=== PATIENT | female | born 1985 | race Caucasian/White ===

== ENCOUNTER 2021-06-21 19:27 | Emergency (ER) | payer SELFPAY ==
[~2021-06-21] VITALS: Ht 165.1 cm; Wt 67.1 kg
[2021-06-21 19:38] VITALS: BP 127/74
--- NOTE | 2021-06-21 19:50 | NUR ---
Patient BIB by family from home. C/O RLQ abdominal pain x 1 day. Patient reported , had RLQ abdominal pain with nausea, vomiting, no diarrhea since 1640 PM yesterday, no fever.
[2021-06-21] MEDS ORDERED: KETOROLAC 30 MG/ML VIAL IVP ONE (20:05)
--- NOTE | 2021-06-21 20:17 | NUR ---
Dr. Saarvia at bedside to exam patient.
[2021-06-21] MEDS ORDERED: ONDANSETRON 4 MG/2 ML VIAL IVP ONE (20:20)
[2021-06-21] MEDS ORDERED: NACL 0.9% 1,000 ML IV SCH (20:20)
[2021-06-21 20:44] LABS: BASOPHILS # (AUTO) 0.1 K/uL (0.00-0.22); BASOPHILS % (AUTO) 0.7 % (0.0-2.0); EOSINOPHILS # (AUTO) 0.1 K/uL (0-0.4); EOSINOPHILS % (AUTO) 0.7 % (0.0-4.0); HEMATOCRIT 38.8 % (36-48); HEMOGLOBIN 13.2 g/dL (12.0-16.0); LYMPHOCYTES # (AUTO) 2.4 K/uL (2.5-16.5); LYMPHOCYTES % (AUTO) 25.9 % (20.5-51.1); MEAN CORPUSCULAR HEMOGLOBIN 28 pg (27-31); MEAN CORPUSCULAR HGB CONC 34 g/dL (33-37); MONOCYTES # (AUTO) 0.6 K/uL (0.8-1.0); MONOCYTES % (AUTO) 5.9 % (1.7-9.3); NEUTROPHILS # (AUTO) 6.2 K/uL (1.8-7.7); NEUTROPHILS % (AUTO) 66.8 % (42.2-75.2); PLATELET COUNT (AUTO) 326 K/uL (140-450); RED BLOOD CELL COUNT(AUTO) 4.67 MIL/uL (4.20-5.40); RED CELL DISTRIBUTION WIDTH 14.7 % (11.6-13.7); WHITE BLOOD COUNT (AUTO) 9.3 K/uL (4.8-10.8)
--- NOTE | 2021-06-21 20:50 | NUR ---
Patient transfer to radiology dept via wheelchair with interventional radiology technologist.
[2021-06-21 20:53] LABS: ALBUMIN 3.9 g/dL (3.4-5.0); ANION GAP 13.1 (8-16); CARBON DIOXIDE 28.3 mmol/L (21-32); CREATININE 0.7 mg/dL (0.6-1.3); POTASSIUM 3.4 mmol/L (3.5-5.1); TOTAL BILIRUBIN 0.2 mg/dL (0.0-1.0)
[2021-06-21 20:58] LABS: BILIRUBIN,URINE NEGATIVE (NEGATIVE); BLOOD, URINE 2+ (NEGATIVE); COLOR,URINE YELLOW (YELLOW); LEUKOCYTE ESTERASE ,URINE 2+ (NEGATIVE); NITRITE, URINE POSITIVE (NEGATIVE); UGLUCOSE NEGATIVE (NEGATIVE)
[2021-06-21 21:00] LABS: APPEARANCE,URINE CLOUDY (CLEAR)
--- NOTE | 2021-06-21 21:01 | NUR ---
Patient return back from CT scan.
[2021-06-21 21:07] LABS: RBC,URINE 11-20 (MOD) /HPF (0-5); WBC,URINE TOO MANY TO COUNT /HPF (0-5)
[2021-06-21] MEDS ORDERED: CIPR500T4 PO (21:44)
[2021-06-21] MEDS ORDERED: ONDA8TAB87 PO (21:44)
[2021-06-21] MEDS ORDERED: IBUP-2213 PO (21:44)
[2021-06-21] MEDS ORDERED: ACET-8386 PO (21:44)
[2021-06-21 22:00] VITALS: BP 114/57
--- NOTE | 2021-06-21 22:00 | NUR ---
Patient discharged with v/s stable. Written and verbal after care instructions given and explained. Patient alert, oriented and verbalized understanding of instructions. Ambulatory with steady gait. All questions addressed prior to discharge. ID band removed. Patient advised to follow up with PMD. Rx of HYDROCODON, CIPRO, IBUPROFEN, ZOFRAN given. Opportunity to ask questions provided and answered.
== END 2021-06-21 22:00 | disposition home or self-care (01) ==
LOC: MED 19:27
DX: N39.0 Urinary tract infection, site not specified (principal)
CPT/HCPCS: 36415; 74176; 80053; 81001; 81025; 83690; 85025; 87086; 96361; 96374; 96375; 99284; J1885; J2405; J7030